=== PATIENT | male | born 1940 | race American Indian/Alaskan Native ===

== ENCOUNTER 2017-05-29 18:20 | Inpatient (IN) | payer MEDICARE ==
[2017-05-29 19:27] LABS: Basophils % (Auto) 0.8 % (0.0-1.8); Eosinophils % (Auto) 0.9 % (0.0-4.3); Hematocrit 51.1 % (35.5-45.6); Hemoglobin 16.6 gm/dl (11.8-15.2); Mean Corpuscular HGB Conc 32 % (32-34); Mean Corpuscular Hemoglobin 30 pg (28-32); Mean Corpuscular Volume 92 fl (84-94); Platelet Count 139 K/mm3 (140-440); Red Blood Count 5.53 M/mm3 (3.65-5.03); Red Cell Distribution Width 15.5 % (13.2-15.2); White Blood Count 5.7 K/mm3 (4.5-11.0)
[2017-05-29 19:29] LABS: Anion Gap 21 mmol/L; BUN/Creatinine Ratio 32; Blood Urea Nitrogen 35 mg/dL (9-20); Calcium 9.1 mg/dL (8.4-10.2); Carbon Dioxide 21 mmol/L (22-30); Chloride 98.7 mmol/L (98-107); Glucose 97 mg/dL (75-100); Potassium 4.8 mmol/L (3.6-5.0); Sodium 136 mmol/L (137-145)
[2017-05-29 19:35] LABS: INR 1.42 (0.87-1.13)
--- NOTE | 2017-05-29 22:47 | Emergency Department Report ---
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 Patient denies chest pain. He also denies if the shortness of breath although patient's states patient has been short of breath. Patient was sent to the ER for evaluation by Dr. Mederos his drafter commercial. He stated he had a scheduled appointment and was sent to the ER because of retained fluid. Patient has been compliant with medications. He states his systolic blood pressure is typically in the 80s to 90s at his baseline. Previous medical record reviewed. Systolic pressure is typically 90s to low 100s as per previous vital signs. As per discharge summary in January 2017 patient was on Coreg 3.125 Lasix 40 mg daily, asa, and lisinopril 2.5 mg once a day. Patient does not have his current list of medications but states to his knowledge there has been no change in his meds. - Related Data Previous Rx's Medication Instructions Recorded Last Taken Type Acetaminophen [Acetaminophen TAB] 325 mg PO Q4H PRN #30 tablet 02/02/17 Unknown Rx Aspirin [Aspirin BABY CHEW TAB] 1 tab PO DAILY #30 02/02/17 11/27/13 Rx Carvedilol [Coreg] 3.125 mg PO BID #60 tablet 02/02/17 Unknown Rx Furosemide [Lasix TAB] 40 mg PO QDAY #30 tablet 02/02/17 Unknown Rx Lisinopril [Zestril TAB] 2.5 mg PO QDAY #30 tablet 02/02/17 Unknown Rx Simvastatin [Zocor TAB] 80 mg PO QHS #30 02/02/17 Unknown Rx Allergies Allergy/AdvReac Type Severity Reaction Status Date / Time No Known Allergies Allergy Verified 01/31/17 12:51 ED Review of Systems ROS: Stated complaint: W-HEART Other details as noted in HPI Comment: All other systems reviewed and negative Other: Constitutional: No fevers chills Eyes: No eye pain visual changes ENT: No ear pain or throat pain Neck: Denies pain Respiratory: Denies cough wheezing Cardiovascular: Denies chest pain, palpitations, syncope GI: Denies abdominal pain, nausea, vomiting, diarrhea : Denies dysuria Musculoskeletal: Denies back pain Skin: Denies rash, lesions, erythema Neurologic: Denies headache, numbness ED Past Medical Hx - Past Medical History Hx Hypertension: Yes (Pt with well compensated CHF) Hx Heart Attack/AMI: No Hx Congestive Heart Failure: Yes Additional medical history: CAD. HYPOTENSION - Surgical History Hx Coronary Stent: Yes (2007) Hx Internal Defibrillator: Yes (APPRX 2008) Additional Surgical History: cardiac stent - Social History Smoking Status: Never Smoker Substance Use Type: None - Medications Home Medications: Home Medications Medication Instructions Recorded Confirmed Last Taken Type Acetaminophen [Acetaminophen TAB] 325 mg PO Q4H PRN #30 tablet 02/02/17 Unknown Rx Aspirin [Aspirin BABY CHEW TAB] 1 tab PO DAILY #30 02/02/17 01/31/17 11/27/13 Rx Carvedilol [Coreg] 3.125 mg PO BID #60 tablet 02/02/17 Unknown Rx Furosemide [Lasix TAB] 40 mg PO QDAY #30 tablet 02/02/17 Unknown Rx Lisinopril [Zestril TAB] 2.5 mg PO QDAY #30 tablet 02/02/17 Unknown Rx Simvastatin [Zocor TAB] 80 mg PO QHS #30 02/02/17 01/31/17 Unknown Rx ED Physical Exam - General Limitations: No Limitations - Other Other exam information: General: No limitations, patient is alert in no acute distress Head exam: Atraumatic, normocephalic Eyes exam: Normal appearance ENT: Moist mucous membrane, normal oropharynx Neck exam: Normal inspection, full range of motion Respiratory exam: Clear to auscultation bilateral, no wheezes, rales, crackles Cardiovascular: Fairly regular rhythm with irregular beats intermittent Abdomen: Soft, nondistended, and nontender, with normal bowel sounds, no rebound, or guarding Extremity: Full range of motion normal inspection no deformity, no calf tenderness, 1+ pitting bilateral edema Back: Normal Inspection, full range of motion, no tenderness Neurologic: Alert, oriented x3, cranial nerves intact, no motor or sensory deficit Psychiatric: normal affect, normal mood Skin: Warm, dry, intact ED Course Vital Signs 05/29/17 05/29/17 18:41 22:25 Temperature 94 F L Pulse Rate 79 83 Respiratory 20 23 Rate Blood Pressure 91/61 89/65 O2 Sat by Pulse 98 96 Oximetry - Reevaluation(s) Reevaluation #1: 05/29/17 22:48 pt stable - Consultations Consultation #1: 05/29/17 22:[address] Barbosa. Recommends to hold lisinopril and Coreg. Will evaluate patient at this time. No IV fluids recommended at this time ED Medical Decision Making - Lab Data Result diagrams: 05/29/17 18:55 05/29/17 18:55 Lab Results 05/29/17 05/29/17 05/29/17 Range/Units 18:55 18:55 18:55 WBC 5.7 (4.5-11.0) K/mm3 RBC 5.53 H (3.65-5.03) M/mm3 Hgb 16.6 H (11.8-15.2) gm/dl Hct 51.1 H (35.5-45.6) % MCV 92 (84-94) fl MCH 30 (28-32) pg MCHC 32 (32-34) % RDW 15.5 H (13.2-15.2) % Plt Count 139 L (140-440) K/mm3 Lymph % (Auto) 20.4 (13.4-35.0) % [place] % (Auto) 9.9 H (0.0-7.3) % Eos % (Auto) 0.9 (0.0-4.3) % Baso % (Auto) 0.8 (0.0-1.8) % Lymph # 1.2 (1.2-5.4) K/mm3 [place] # 0.6 (0.0-0.8) K/mm3 Eos # 0.1 (0.0-0.4) K/mm3 Baso # 0.0 (0.0-0.1) K/mm3 Seg Neutrophils % 68.0 (40.0-70.0) % Seg Neutrophils # 3.9 (1.8-7.7) K/mm3 PT 18.1 H (12.2-14.9) Sec. INR 1.42 H (0.87-1.13) Sodium 136 L (137-145) mmol/L Potassium 4.8 (3.6-5.0) mmol/L Chloride 98.7 (98-107) mmol/L Carbon Dioxide 21 L (22-30) mmol/L Anion Gap 21 mmol/L BUN 35 H (9-20) mg/dL Creatinine 1.1 (0.8-1.5) mg/dL Estimated GFR > 60 ml/min BUN/Creatinine Ratio 32 % Glucose 97 (75-100) mg/dL Calcium 9.1 (8.4-10.2) mg/dL Troponin T 0.019 (0.00-0.029) ng/mL 05/29/17 Range/Units 21:44 WBC (4.5-11.0) K/mm3 RBC (3.65-5.03) M/mm3 Hgb (11.8-15.2) gm/dl Hct (35.5-45.6) % MCV (84-94) fl MCH (28-32) pg MCHC (32-34) % RDW (13.2-15.2) % Plt Count (140-440) K/mm3 Lymph % (Auto) (13.4-35.0) % [place] % (Auto) (0.0-7.3) % Eos % (Auto) (0.0-4.3) % Baso % (Auto) (0.0-1.8) % Lymph # (1.2-5.4) K/mm3 [place] # (0.0-0.8) K/mm3 Eos # (0.0-0.4) K/mm3 Baso # (0.0-0.1) K/mm3 Seg Neutrophils % (40.0-70.0) % Seg Neutrophils # (1.8-7.7) K/mm3 PT (12.2-14.9) Sec. INR (0.87-1.13) Sodium (137-145) mmol/L Potassium (3.6-5.0) mmol/L Chloride (98-107) mmol/L Carbon Dioxide (22-30) mmol/L Anion Gap mmol/L BUN (9-20) mg/dL Creatinine (0.8-1.5) mg/dL Estimated GFR ml/min BUN/Creatinine Ratio % Glucose (75-100) mg/dL Calcium (8.4-10.2) mg/dL Troponin T 0.016 (0.00-0.029) ng/mL - EKG Data -: EKG Interpreted by Me (paced rhythm intermittently rate 87, no ST elevation) - EKG Data When compared to previous EKG there are: no significant change (compared to 02/2017) - Radiology Data Radiology results: image reviewed (chest x-ray: Cardiomegaly, pacemaker, no pulmonary edema) - Medical Decision Making Patient EKG unchanged. Patient pain-free. No signs of acute heart failure as per chest x-ray however, patient does have lower extremities edema. Patient be admitted to the hospital for further cardiac evaluation. Electronic Instrument Trades Worker recommends to hold beta sugey and lisinopril at this time. - Differential Diagnosis overmedication, heart failure, OR, infection, chronic hypotension Critical Care Time: No Critical care attestation.: If time is entered above; I have spent that time in minutes in the direct care of this critically ill patient, excluding procedure time. ED Disposition Clinical Impression: Generalized weakness, Chronic heart failure, Ischemic dilated cardiomyopathy, Leg edema, Hypotension Disposition: OP ADMIT IP TO THIS HOSP Is pt being admited?: Yes Condition: Stable Time of Disposition: 22:48 (Dr Loving/hosp)
--- NOTE | 2017-05-29 23:22 | History and Physical Report ---
History of Present Illness Date of examination: 05/29/17 History of present illness: 76-year-old man with a history of hypertension, CHF, hyperlipidemia, coronary artery disease disease was sent to emergency room by his train planner because the patient complained ofof generalized weakness. He was found to be hypotensive with systolic blood pressure in the 90s. Patient stated that he's been retaining fluid and his medicine is not working Review Of Systems: Constitutional: no weight loss Ears, eyes, nose, mouth and throat: no nasal congestion, no nasal discharge, no sinus pressure, blurry vision, diplopia Neck: No neck pain or rigidity. Cardiovascular: chest pain, orthopnea, palpitations Respiratory: No shortness of breath, cough Gastrointestinal: abdominal pain, hematochezia Genitourinary : no dysuria, frequency , hematuria Musculoskeletal: no muscle ache Integumentary: no rash, no pruritis Neurological: no parathesias, focal weakness Endocrine: no cold or heat intolerance, no polyuria or polydipsia Hematologic/Lymphatic: no easy bruising, no easy bleeding, no gland swelling Allergic/Immunologic: no urticaria, no angioedema. PAST MEDICAL HISTORY:hypertension, CHF, hyperlipidemia, coronary artery disease PAST SURGICAL HISTORY: AICD SOCIAL HISTORY: Denies alcohol, tobacco, drugs FAMILY HISTORY: Hypertension Medications and Allergies Allergies Allergy/AdvReac Type Severity Reaction Status Date / Time No Known Allergies Allergy Verified 01/31/17 12:51 Home Medications Medication Instructions Recorded Confirmed Last Taken Type Acetaminophen [Acetaminophen TAB] 325 mg PO Q4H PRN #30 tablet 02/02/17 Unknown Rx Aspirin [Aspirin BABY CHEW TAB] 1 tab PO DAILY #30 02/02/17 01/31/17 11/27/13 Rx Carvedilol [Coreg] 3.125 mg PO BID #60 tablet 02/02/17 Unknown Rx Furosemide [Lasix TAB] 40 mg PO QDAY #30 tablet 02/02/17 Unknown Rx Lisinopril [Zestril TAB] 2.5 mg PO QDAY #30 tablet 02/02/17 Unknown Rx Simvastatin [Zocor TAB] 80 mg PO QHS #30 02/02/17 01/31/17 Unknown Rx Exam - Physical Exam Narrative exam: Gen. appearance: Patient lying in bed, no apparent distress HEENT: Normocephalic, atraumatic, pupils equally round and reactive to light, extraocular movement intact, and no sclericterus,. No JVD or thyromegaly or nodule,neck supple, no carotid bruit ,mucous membranes moist, no exudate or erythema Heart: S1, S2, regular rate and rhythm Lungs: Clear to auscultation bilaterally, breathing comfortable Abdomen: Positive bowel sounds, nontender, nondistended, no organomegaly Extremity: No edema, cyanosis, clubbing Skin: No rash, nodules, warm, dry Neuro: Oriented 3, cranial nerves II-12 intact, speech is fluent, motor and sensory intact - Constitutional Vitals: Temp Pulse Resp BP Pulse Ox 94 F L 83 23 89/65 96 05/29/17 18:41 05/29/17 22:25 05/29/17 22:25 05/29/17 22:25 05/29/17 22:25 Results - Labs CBC & Chem 7: 05/29/17 18:55 05/29/17 18:55 Labs: Abnormal lab results 05/29/17 05/29/17 05/29/17 Range/Units 18:55 18:55 18:55 RBC 5.53 H (3.65-5.03) M/mm3 Hgb 16.6 H (11.8-15.2) gm/dl Hct 51.1 H (35.5-45.6) % RDW 15.5 H (13.2-15.2) % Plt Count 139 L (140-440) K/mm3 [place] % (Auto) 9.9 H (0.0-7.3) % PT 18.1 H (12.2-14.9) Sec. INR 1.42 H (0.87-1.13) Sodium 136 L (137-145) mmol/L Carbon Dioxide 21 L (22-30) mmol/L BUN 35 H (9-20) mg/dL - Imaging and Cardiology EKG: image reviewed Chest x-ray: image reviewed Assessment and Plan Assessment Relative hypotension with generalized weakness Hypertension CHF, stable Coronary artery disease Hyperlipidemia Thrombocytopenia Plan Admit to medicine Hold all antihypertensive and diuretics per cardiology consult cardiology, Check cardiac enzymes Continue outpatient medications, start DVT prophylaxis
[2017-05-30] MEDS ORDERED: MILK OF MAGNESIA PO PRN (02:21)
[2017-05-30] MEDS ORDERED: ZOFRAN IV PRN (02:21)
[2017-05-30] MEDS ORDERED: DULCOLAX PR PRN (02:21)
[2017-05-30] MEDS ORDERED: TYLENOL PO PRN (02:21)
[2017-05-30 03:47] LABS: Creatine Kinase MB 3.6 ng/mL (0.0-4.0)
--- NOTE | 2017-05-30 08:05 | XRay Report ---
CHEST XRAY, 2 VIEWS: History: New onset atrial fibrillation. Findings: 2-lead pacemaker devices unchanged since 01/31/17. There is mild cardiomegaly. Pulmonary vessels are within normal limits. The lungs are clear and fully expanded. No infiltrate, pleural effusion or pneumothorax. Normal thoracic cage. IMPRESSION: Cardiomegaly.
[2017-05-30 08:47] LABS: Creatine Kinase MB 3.5 ng/mL (0.0-4.0)
[2017-05-30 08:56] VITALS: BP 93/63
[2017-05-30] MEDS ORDERED: LOVENOX SUB-Q SCH (10:00)
[2017-05-30] MEDS ORDERED: BABY ASPIRIN PO SCH (10:00)
--- NOTE | 2017-05-30 12:23 | Consultation ---
History of Present Illness Consult date: 05/30/17 Requesting physician: ADAMARIS SANCHEZ Consult reason: congestive heart failure, known to you History of present illness: Pt is a 77 YO male with a past medical history significant for CAD, severe dilated ICMP s/p AICD, HTN, and heart failure. He is regularly followed in our office by Dr. Radha Mederos. 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 In our office, he was found to be in new onset atrial fibrillation and was referred to [facility] ED for further eval/managemetn. He reports compliance with his medications and dietary restrictions. He denies any chest pain, palpitations, n/v, diaphoresis, dizziness, or syncope. On evaluation, he denies any complaints. Echo done 2015 showed EF < 15%, LV severely dilated, severe diastolic dysfunction, moderate biatrial dilation, pacemaker noted in RV, moderate MR. PET MPI done 2014 showed no evidence of significant ischemia, EF 21% Past History Past Medical History: CAD, heart failure (systolic), hypertension Past Surgical History: Other (AICD) Social history: , lives with family Medications and Allergies Allergies Allergy/AdvReac Type Severity Reaction Status Date / Time No Known Allergies Allergy Verified 01/31/17 12:51 Home Medications Medication Instructions Recorded Confirmed Last Taken Type Aspirin [Aspirin BABY CHEW TAB] 1 tab PO DAILY #30 02/02/17 05/30/17 1 Day Ago Rx Carvedilol [Coreg] 3.125 mg PO BID #60 tablet 02/02/17 05/30/17 1 Day Ago Rx Furosemide [Lasix TAB] 40 mg PO QDAY #30 tablet 02/02/17 05/30/17 1 Day Ago Rx Lisinopril [Zestril TAB] 2.5 mg PO QDAY #30 tablet 02/02/17 05/30/17 1 Day Ago Rx Simvastatin [Zocor TAB] 80 mg PO QHS #30 02/02/17 05/30/17 1 Day Ago Rx Active Meds: Active Medications Acetaminophen (Tylenol) 650 mg PO Q4H PRN PRN Reason: Pain MILD(1-3)/Fever >100.5/ROWE Apixaban (Eliquis) 5 mg PO Q12HR [place] PRN Reason: Protocol Aspirin (Baby Aspirin) 81 mg PO DAILY [facility] Last Admin: 05/30/17 11:51 Dose: 81 mg Atorvastatin Calcium (Lipitor) 40 mg PO QHS [facility] Bisacodyl (Dulcolax) 10 mg [place] QDAY PRN PRN Reason: Constipation unrelieved by MOM Carvedilol (Coreg) 3.125 mg PO BID [facility] Furosemide (Lasix) 40 mg PO QDAY [facility] Lisinopril (Zestril) 2.5 mg PO QDAY [facility] Magnesium Hydroxide (Milk Of Magnesia) 30 ml PO Q4H PRN PRN Reason: Constipation Ondansetron HCl (Zofran) 4 mg IV Q8H PRN PRN Reason: N/V unrelieved by Reglan Review of Systems Constitutional: no weight loss, no weight gain, no fever, no chills, no sweats Ears, nose, mouth and throat: no ear pain, no nose pain, no sinus pressure, no sinus pain Cardiovascular: shortness of breath, no chest pain, no orthopnea, no palpitations, no rapid/irregular heart beat, no edema, no syncope, no lightheadedness, no dyspnea on exertion, no paroxysmal nocturnal dyspnea, no high blood pressure, no leg edema Respiratory: shortness of breath, no cough, no dyspnea on exertion, no congestion, no pain, no pain on inspiration Gastrointestinal: no nausea, no vomiting, no diarrhea, no constipation, no change in bowel habits Genitourinary Male: no dysuria, no hematuria, no flank pain, no discharge, no urinary frequency, no urinary hesitancy Musculoskeletal: muscle weakness (generalized), no neck stiffness, no neck pain , no shooting arm pain, no arm numbness/tingling, no low back pain, no shooting leg pain, no leg numbness/tingling, no redness of joints Integumentary: no rash, no pruritis, no redness, no sores, no wounds Neurological: no head injury, no paralysis, no weakness, no parathesias, no numbness, no tingling, no seizures, no syncope Psychiatric: no anxiety Endocrine: no cold intolerance, no heat intolerance Hematologic/Lymphatic: no easy bruising, no easy bleeding, no lymphadenopathy Allergic/Immunologic: no urticaria, no wheezing Physical Examination Vital Signs Temp Pulse Resp BP Pulse Ox 94 F L 79 20 91/61 98 05/29/17 18:41 05/29/17 18:41 05/29/17 18:41 05/29/17 18:41 05/29/17 18:41 General appearance: no acute distress HEENT: Positive: PERRL, Normocephaly, Mucus Membranes Moist Neck: Positive: neck supple, trachea midline Cardiac: Positive: irregularly irregular, S1/S2, Systolic Murmur Lungs: Positive: clear to auscultation Neuro: Positive: Grossly Intact Abdomen: Positive: Unremarkable, Soft, Active Bowel Sounds. Negative: Tender Skin: Positive: Clear. Negative: Rash, Wound Musculoskeletal: No Fluid Collection, No Pain, Normal Range of Motion Extremities: Present: upper extr. pulses, lower extr. pulses. Absent: edema Results 05/29/17 18:55 05/29/17 18:55 Cardiac Enzymes 05/30/17 05/30/17 Range/Units 03:14 08:08 CK-MB (CK-2) 3.6 3.5 (0.0-4.0) ng/mL - Imaging and Cardiology EKG: image reviewed EKG interpretations - Telemetry EKG Rhythm: Atrial Fibrillation - EKG Supraventricular dysrhythmia: atrial fibrillation Pacemaker: ventricular pacing w/capt Assessment and Plan Assessment: New onset atrial fibrillation with CVR Chronic systolic heart failure - no current clinical evidence of acute failure CAD Severe dilated ICMP - EF <15% on echo 06/2016 AICD in situ HTN Plan: Pt with current CHADS score of 3 and thus systemic AC in regards to new onset atrial fibrillation is recommended. Indications, potential risks and benefits of senior living OAC reviewed with pt and pt's at bedside and they are agreeable to long term care social worker OAC. Initiate Eliquis, 5mg PO BID. Eliquis coupon card provided. Cont all other home cardiac medications, including lasix, coreg & lisinopril. Currently stable cardiac status. Pt may discharge from cardiology standpoint. Recommend pt follow up in our office with Dr. Radha Mederos within 1 week of hospital discharge ([phone]) - pts states she will call and make appt. Assessment and plan reviewed with pt at bedside. The patient has been seen in conjunction with Dr. Phillips who agrees with the assessment and plan of care.
[2017-05-30] MEDS ORDERED: ELIQUIS PO SCH (13:00)
--- NOTE | 2017-05-30 13:03 | Discharge Summary ---
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 In the cardiology office, he was found to be in new onset atrial fibrillation and was referred to [facility] ED for further eval/managemetn. He had Echo done 06/2016 showed EF < 15%, LV severely dilated, severe diastolic dysfunction, moderate biatrial dilation, pacemaker noted in RV, moderate MR. PET MPI done 08/2014 showed no evidence of significant ischemia, EF 21%. Patient with current CHADS score of 3 and thus systemic AC in regards to new onset atrial fibrillation is recommended. He was Initiated on Eliquis, 5mg PO BID. Eliquis coupon card provided. He will Cont all other home cardiac medications, including lasix, coreg & lisinopril. He was evaluated by cardiology and cleared for discharge from cardiology standpoint. He was Recommend to follow up with Dr. Radha Mederos within 1 week of hospital discharge ([phone]) - pts states she will call and make appt. Discharge Diagnosis: New onset atrial fibrillation with CVR Chronic systolic heart failure - no current clinical evidence of acute failure CAD, on BB and ACEI Severe dilated ICMP - EF <15% on echo 06/2016 AICD in situ HTN, stable Radiology Data image reviewed (chest x-ray: Cardiomegaly, pacemaker, no pulmonary edema) Disposition: - TO HOME OR SELFCARE Time spent for discharge: 32 minutes Core Measure Documentation - Palliative Care Palliative Care/ Comfort Measures: Not Applicable - Core Measures Any of the following diagnoses?: heart failure - Heart Failure Discharge Requirements SHANNON/ARB for LVSD if EF <40%: Yes Beta sugey at discharge: Yes Exam - Constitutional Vitals: Temp Pulse Resp BP Pulse Ox 97.5 F L 72 18 93/63 98 05/30/17 08:28 05/30/17 08:28 05/30/17 08:28 05/30/17 08:28 05/30/17 08:28 General appearance: Present: no acute distress, well-nourished - EENT Eyes: Present: PERRL ENT: hearing intact, clear oral mucosa - Neck Neck: Present: supple, normal ROM - Respiratory Respiratory effort: normal Respiratory: bilateral: CTA - Cardiovascular Heart Sounds: Present: S1 & S2. Absent: rub, click - Extremities Extremities: pulses symmetrical, No edema Peripheral Pulses: within normal limits - Abdominal General gastrointestinal: Present: soft, non-tender, non-distended, normal bowel sounds - Integumentary Integumentary: Present: clear, warm, dry - Musculoskeletal Musculoskeletal: gait normal, strength equal bilaterally - Psychiatric Psychiatric: appropriate mood/affect, intact judgment & insight - Neurologic Neurologic: CNII-XII intact, moves all extremities Plan Activity: advance as tolerated Weight Bearing Status: Weight Bear as Tolerated Diet: low fat, low salt Follow up with: KUMAR DODGE MD [Primary Care Provider] - 7 Days Prescriptions: Apixaban [Eliquis] 5 mg PO Q12HR #60 tablet
[2017-05-30] MEDS ORDERED: COREG PO SCH (22:00)
[2017-05-30] MEDS ORDERED: ZOCOR PO SCH (22:00)
[2017-05-31] MEDS ORDERED: LASIX PO SCH (06:00)
[2017-05-31] MEDS ORDERED: ZESTRIL PO SCH (10:00)
== END 2017-05-30 15:11 | disposition home or self-care (01) | DRG 309 ==
LOC: ED 18:20 → 4A 23:21
PROVIDERS: ADMIT Internal Medicine; ATTEND Internal Medicine
DX: I48.91 Unspecified atrial fibrillation (principal); I50.22 Chronic systolic (congestive) heart failure; I95.9 Hypotension, unspecified; I42.0 Dilated cardiomyopathy; E78.5 Hyperlipidemia, unspecified; D69.6 Thrombocytopenia, unspecified; I25.10 Atherosclerotic heart disease of native coronary artery without angina pectoris; J44.9 Chronic obstructive pulmonary disease, unspecified; I25.5 Ischemic cardiomyopathy; I11.0 Hypertensive heart disease with heart failure; Z95.5 Presence of coronary angioplasty implant and graft; Z95.810 Presence of automatic (implantable) cardiac defibrillator; Z82.49 Family history of ischemic heart disease and other diseases of the circulatory system
CPT/HCPCS: 36415; 71020; 80048; 82550; 82553; 84484; 85025; 85610; 93005; 93010